=== PATIENT | male | born 1950 | race Caucasian/White ===

== ENCOUNTER → 2018-01-15 | Outpatient (CLI) | payer MEDICARE | LOC: LAB 08:54 | DX: E11.49 Type 2 diabetes mellitus with other diabetic neurological complication (principal) | CPT/HCPCS: 36415; 82040; 82247; 82310; 82374; 82435; 82565; 82947; 83036; 84075; 84132; 84155; 84295; 84450; 84460; 84520 ==

== ENCOUNTER → 2018-06-16 | Outpatient (CLI) | payer MEDICARE | LOC: LAB 11:23 | PROVIDERS: ATTEND Family Medicine | DX: E11.69 Type 2 diabetes mellitus with other specified complication (principal); E78.5 Hyperlipidemia, unspecified; E11.42 Type 2 diabetes mellitus with diabetic polyneuropathy | CPT/HCPCS: 36415; 82465; 83036; 83718; 84478 ==

== ENCOUNTER 2018-07-04 08:39 | Emergency (ER) | payer MEDICARE ==
[2018-07-04] MEDS ORDERED: fentaNYL CITR 100 MCG/2 ML AMP IVP ONE (08:50)
[2018-07-04] MEDS ORDERED: fentaNYL CITR 100 MCG/2 ML AMP ONE (09:21)
--- NOTE | 2018-07-04 09:39 | ER Report ---
History and Physical Time Seen By MD: 08:50 Hx. of Stated Complaint: PT GOT HAND CAUGHT IN SNOWBLOWER HPI/ROS CHIEF COMPLAINT: Left hand injury HISTORY OF PRESENT ILLNESS: Patient is a 68-year-old male who is left-hand dominant who had a crush injury to his left hand using a snowblower today. He states he got the hand caught between the engine and one of the beveling parts. His hand was not caught in the legs. Patient has pain to the hand specifically the 5th finger with some swelling. Patient is unsure of his last tetanus status. REVIEW OF SYSTEMS: Respiratory: No cough, no dyspnea. Cardiovascular: No chest pain, no palpitations. Gastrointestinal: No vomiting, no abdominal pain. Musculoskeletal: No back pain. Left hand injury Allergies: Coded Allergies: Sulfa (Sulfonamide Antibiotics) (Verified Allergy, Intermediate, 07/04/18) Home Meds Active Scripts Hydrocodone Bit/Acetaminophen (HYDROCODON-ACETAMINOPHEN 5-325) 1 Each Tablet, 1 EACH PO Q4-6H PRN for PAIN, #12 TAB 0 Refills TAKE ONE TABLET BY MOUTH EVERY 4-6 HOURS NEEDED FOR PAIN Prov:DEANGELO LEE MD 07/04/18 Reported Medications Meloxicam (MELOXICAM) 15 Mg Tablet, 15 MG PO QDAY 07/04/18 Metoprolol Succinate (METOPROLOL SUCCINATE) 50 Mg Tab.er.24h, 2 TAB PO QDAY, TAB 07/04/18 Allopurinol (ZYLOPRIM) 300 Mg Tablet, 300 MG PO BID, TAB 07/04/18 Lisinopril (LISINOPRIL) 5 Mg Tablet, 5 MG PO QDAY, TAB 07/04/18 Past Medical/Surgical History Noncontributory towards his chief complaint Hx Substance Use Disorder: No Hx Alcohol Use: Yes (OCCASSIONAL ) Constitutional Vital Sign - Last 24 Hours 07/04/18 07/04/18 07/04/18 07/04/18 08:44 08:47 09:15 09:30 Temp 97.1 Pulse 55 Resp 18 B/P (MAP) 127/76 127/76 (93) 132/83 (99) Pulse Ox 95 96 O2 Delivery Room Air 07/04/18 07/04/18 07/04/18 09:45 10:00 10:15 Pulse 60 58 B/P (MAP) 116/69 (85) Pulse Ox 96 96 Physical Exam General appearance: Alert no distress. Respiratory: Chest is non tender, lungs are clear to auscultation. Cardiac: Regular rate and rhythm Left hand: No gross deformity however there is bruising and pain to the dorsum of the hand along with abrasion. Patient is wearing a titanium ring on his left finger. There is swelling but the digit does not appear vascularly compromised. Capillary refill is less than 2 seconds. Examination of the Left hand reveals no acute deformity. The patient is able to give a thumbs up sign, is able to make an okay sign, and is able to AB duct the fingers. Sensation is intact over the dorsal 1st web space, the volar aspect of the 2nd finger, and the volar aspect of the 5th finger. Capillary refill is brisk. His tenderness to the 5th and 4th fingers. Medical Decision Making EKG/Imaging Imaging FACILITY: [facility] PATIENT NAME: David Rose : 1950 MR: [id number] V: [id number] EXAM DATE: ORDERING PHYSICIAN: DEANGELO LEE TECHNOLOGIST: Location: [facility] Patient: David Rose : 1950 Visit/Account:[id number] Date of Sevice: 07/04/2018 HAND COMPLETE LEFT HISTORY: Trauma. Hand caught in a car shaft. Unable to get ring off. ADDITIONAL HISTORY: None. COMPARISON: None. FINDINGS: 3 views were obtained of the left hand. There is soft tissue swelling most significant over the dorsal surface of the metacarpals. There is also soft tissue swelling of the fourth digit. Alignment is anatomic. There is no fracture identified. Bony mineralization is normal. Moderate to severe degenerative changes are present in the IP joint of the thumb, DIP joints and fourth and fifth PIP joints. IMPRESSION: 1. Soft tissue swelling without evidence of fracture. If the patient has ongoing symptoms, follow-up study may be considered in 7-10 days. 2. Osteoarthritic changes most significant in the IP joints as described above. Report Dictated By: Lo Austin MD at 07/04/2018 9:51 AM Report E-Signed By: Lo Austin MD at 07/04/2018 9:53 AM WSN:[id number] ED Course/Re-evaluation ED Course 07/04/2018 9:39:29 am multiple attempts to get the ring off using umbilical tape along with lubrication were ineffective. We attempted using a ring cutter however this isn't effective given the fact it is titanium. The distal finger does not look vascularly compromised. Plan this time will be to ice the finger and observed. 07/04/2018 10:14:13 am patient with titanium ring to the 4th finger. Had discussion with patient and spouse that we were unable to remove the ring. Currently the finger is not vascularly compromised. However my concern would be with increased swelling it could become that way. We attempted to call [facility], the prior department they have both cutters but they are too large to be of use. Explained to family that if the swelling worsens they [place] [facility] [place] [facility]. Patient and spouse had no questions or concerns at time of disposition. Decision to Disposition Date: Jul 04, 2018 Decision to Disposition Time: 10:16 Depart Departure Latest Vital Signs Vital Signs Date Time Temp Pulse Resp B/P (MAP) Pulse Ox O2 Delivery O2 Flow Rate FiO2 07/04/18 10:15 58 96 07/04/18 10:00 116/69 (85) 07/04/18 08:44 97.1 18 Room Air Impression: Primary Impression: Hand abrasion, non-infected Condition: Improved Disposition: HOME OR SELF-CARE New Scripts Hydrocodone Bit/Acetaminophen (HYDROCODON-ACETAMINOPHEN 5-325) 1 Each Tablet 1 EACH PO Q4-6H PRN for PAIN, #12 TAB 0 Refills TAKE ONE TABLET BY MOUTH EVERY 4-6 HOURS NEEDED FOR PAIN Prov: DEANGELO LEE MD 07/04/18 Departure Forms: ER Transition Record, Medications Reconciliation, Patient Portal Information Patient Instructions: Abrasion (GEN), Crush Injury (ED) Additional Instructions: Watch for worsening swelling to the hand or left finger. As we discussed the titanium ring is quite difficult to remove by usual cutting methods. And we were unable to get the ring off secondary to the swelling of the knuckle. If the swelling worsens I would recommend going [place] [facility] [place] [facility]. Keep your hand elevated above heart level at all times. Use intermittent ice packs over the hand and finger for the next 48 hours. Topical antibiotic to the abrasions twice per day for the next 5-7 days DEANGELO LEE MD Jul 04, 2018 09:39
--- NOTE | 2018-07-04 09:58 | RADIOLOGY IMAGING REPORT ---
FACILITY: [facility] [place] PATIENT NAME: David Rose : 1950 MR: [id number] V: [id number] EXAM DATE: ORDERING PHYSICIAN: DEANGELO LEE TECHNOLOGIST: Location: [facility] [place] Patient: David Rose : 1950 Visit/Account:[id number] Date of Sevice: 07/04/2018 HAND COMPLETE LEFT HISTORY: Trauma. Hand caught in a car shaft. Unable to get ring off. ADDITIONAL HISTORY: None. COMPARISON: None. FINDINGS: 3 views were obtained of the left hand. There is soft tissue swelling most significant over the dorsa l surface of the metacarpals. There is also soft tissue swelling of the fourth digit. Alignment is an atomic. There is no fracture identified. Bony mineralization is normal. Moderate to severe degenerative changes are present in the IP joint of the thumb, DIP joints and four th and fifth PIP joints. IMPRESSION: 1. Soft tissue swelling without evidence of fracture. If the patient has ongoing symptoms, follow-up study may be considered in 7-10 days. 2. Osteoarthritic changes most significant in the IP joints as described above. Report Dictated By: Lo Austin MD at 07/04/2018 9:51 AM Report E-Signed By: Lo Austin MD at 07/04/2018 9:53 AM WSN:[id number]
[2018-07-04 10:00] VITALS: BP 116/69
[2018-07-04] MEDS ORDERED: LISI5TAB25 PO (10:01)
[2018-07-04] MEDS ORDERED: METO50TA19 PO (10:01)
[2018-07-04] MEDS ORDERED: ALLO-119 PO (10:01)
[2018-07-04] MEDS ORDERED: MELO-207 PO (10:01)
[2018-07-04] MEDS ORDERED: LOR5/325 PO (10:10)
[2018-07-04] MEDS ORDERED: DIPHTH/TETANUS/ACEL. PERTUSSIS IM ONLY ONE (10:30)
== END 2018-07-04 10:38 | disposition home or self-care (01) ==
LOC: ER 09:06
DX: S60.512A Abrasion of left hand, initial encounter (principal); M79.89 Other specified soft tissue disorders; W31.89XA Contact with other specified machinery, initial encounter
CPT/HCPCS: 73130; 90471; 90715; 96374; 99284; J3010

== ENCOUNTER 2018-07-10 14:55 | Emergency (ER) | payer MEDICARE ==
[~2018-07-10 14:55] MED LIST: ALLO-119 PO; LISI5TAB25 PO; LOR5/325 PO; MELO-207 PO; METO50TA19 PO
--- NOTE | 2018-07-10 15:07 | ER Report ---
History and Physical Time Seen By MD: 15:08 Hx. of Stated Complaint: PATIENT HAD A HAND INJURY LAST WEEK. TODAY HE RETURNS WITH REDNESS, SWELLING AND PAIN HPI/ROS CHIEF COMPLAINT: Left hand swelling HISTORY OF PRESENT ILLNESS: This is a 68-year-old male who presents to the emergency department for left hand swelling. Patient states one week ago he was cleaning out some snow a snowblower, his glove got caught in the auger and pull his hand through, he does have multiple abrasions to the dorsum of the left hand as well as the left ring finger. He did come in for an evaluation, an x-ray of the left hand was negative for any acute fractures. Patient was discharged home. Patient states that yesterday he developed increased redness and swelling in the left ring finger and small finger, as well as a few areas of the dorsum of the left hand. No fevers or chills. No nausea or vomiting. No chest pain or shortness of breath. REVIEW OF SYSTEMS: Respiratory: No cough, no dyspnea. Cardiovascular: No chest pain, no palpitations. Gastrointestinal: No vomiting, no abdominal pain. Musculoskeletal: As above. Allergies: Coded Allergies: Sulfa (Sulfonamide Antibiotics) (Verified Allergy, Intermediate, 07/04/18) Home Meds Active Scripts Cephalexin 500 Mg Tab (KEFLEX 500 MG TAB) 500 Mg Tablet, 500 MG PO Q6H, #28 TAB 0 Refills Prov:ANDERSON MICHELLE [employer] 07/10/18 Hydrocodone Bit/Acetaminophen (HYDROCODON-ACETAMINOPHEN 5-325) 1 Each Tablet, 1 EACH PO Q4-6H PRN for PAIN, #12 TAB 0 Refills TAKE ONE TABLET BY MOUTH EVERY 4-6 HOURS NEEDED FOR PAIN Prov:DEANGELO LEE MD 07/04/18 Reported Medications Meloxicam (MELOXICAM) 15 Mg Tablet, 15 MG PO QDAY 07/04/18 Metoprolol Succinate (METOPROLOL SUCCINATE) 50 Mg Tab.er.24h, 2 TAB PO QDAY, TAB 07/04/18 Allopurinol (ZYLOPRIM) 300 Mg Tablet, 300 MG PO BID, TAB 07/04/18 Lisinopril (LISINOPRIL) 5 Mg Tablet, 5 MG PO QDAY, TAB 07/04/18 Past Medical/Surgical History The patient has a past medical and surgical history of hypertension, right knee replacement, borderline diabetic, arthritis. Reviewed Nurses Notes: Yes Hx Substance Use Disorder: No Hx Alcohol Use: Yes (OCCASSIONAL ) Constitutional Vital Sign - Last 24 Hours 07/10/18 15:03 Temp 97.8 Pulse 63 Resp 20 B/P (MAP) 131/86 Pulse Ox 93 O2 Delivery Room Air Physical Exam General Appearance: The patient is alert, has no immediate need for airway protection and no current signs of toxicity. Eyes: Pupils equal and round no injection. Respiratory: Chest is non tender, lungs are clear to auscultation. Cardiac: regular rate and rhythm. Gastrointestinal: Abdomen is soft and non tender, no masses, bowel sounds normal. Musculoskeletal: Neck: Neck is supple and non tender. Extremities have full range of motion and are non tender. Skin: Multiple abrasions to the dorsum of the left hand and multiple stages of healing, cellulitis to the left ring finger and small finger, mildly warm to touch, no drainage DIFFERENTIAL DIAGNOSIS: After history and physical exam differential diagnosis was considered for cellulitis, osteomyelitis, septic arthritis. Medical Decision Making EKG/Imaging Imaging EXAMINATION: Left hand series, 3 views 07/10/2018 3:20 PM HISTORY: Hand injury one week ago. Now with swelling and pain. COMPARISON: 07/04/2018 FINDINGS: There are fragments along the PIPs and the fourth and fifth digits with soft tissue swelling around both joints again shown. Spurring is also present along the DIP joints of fingers in the IP joint in the thumb. No acute bony finding otherwise evident. IMPRESSION: Soft tissue swelling along the fourth and fifth PIPs with calcific or bony fragments of uncertain chronicity, similar in appearance to 07/04/2018. No potential acute bony injury otherwise evident. Report Dictated By: Surjit Lim MD at 07/10/2018 4:08 PM Report E-Signed By: Surjit Lim MD at 07/10/2018 4:12 PM WSN:[id number] ED Course/Re-evaluation ED Course The patient was admitted to room. A history of this or pain. Differential diagnoses were considered. An x-ray of the left hand was negative for any acute osseous abnormalities, showing soft tissue swelling. I did review the results with the patient. I did start patient on Keflex. Patient was instructed to take medications until complete, return to ER for worsening symptoms or any other concerns. Patient discussed understanding and was discharged home. Patient was also in agreement with this plan of care. Decision to Disposition Date: Jul 10, 2018 Decision to Disposition Time: 16:24 Depart Departure Latest Vital Signs Vital Signs Date Time Temp Pulse Resp B/P (MAP) Pulse Ox O2 Delivery O2 Flow Rate FiO2 07/10/18 15:03 97.8 63 20 131/86 93 Room Air Impression: Primary Impression: Hand abrasion Additional Impression: Cellulitis of left hand Condition: Improved Disposition: HOME OR SELF-CARE New Scripts Cephalexin 500 Mg Tab (KEFLEX 500 MG TAB) 500 Mg Tablet 500 MG PO Q6H, #28 TAB 0 Refills Prov: ANDERSON MICHELLE 07/10/18 Patient Instructions: Cellulitis (ED) Additional Instructions: There are no concerning findings on your Xray. You do have an infection, we will treat with Keflex. Take the antibiotics as prescribed. I would not expect a significant improvement in the swelling in the next 48-72 hours, however if there is a dramatic change in the swelling and range of motion then return to the ED. Drink plenty of water. Get plenty of rest. Return to the ED for another concerns. Follow up with your PCP within one week for reevaluation. Problem Qualifiers Primary Impression: Hand abrasion Encounter type: initial encounter Laterality: left Qualified Codes: S60.512A - Abrasion of left hand, initial encounter ANDERSON MICHELLEP-BC Jul 10, 2018 15:07
[2018-07-10] MEDS ORDERED: CEPH500T7 PO (16:11)
--- NOTE | 2018-07-10 16:16 | RADIOLOGY IMAGING REPORT ---
FACILITY: [facility] PATIENT NAME: David Rose : 1950 MR: [id number] V: [id number] EXAM DATE: ORDERING PHYSICIAN: ANDERSON MICHELLE TECHNOLOGIST: Location: [facility] Patient: David Rose : 1950 Visit/Account:[id number] Date of Sevice: 07/10/2018 EXAMINATION: Left hand series, 3 views 07/10/2018 3:20 PM HISTORY: Hand injury one week ago. Now with swelling and pain. COMPARISON: 07/04/2018 FINDINGS: There are fragments along the PIPs and the fourth and fifth digits with soft tissue swelli ng around both joints again shown. Spurring is also present along the DIP joints of fingers in the IP joint in the thumb. No acute bony finding otherwise evident. IMPRESSION: Soft tissue swelling along the fourth and fifth PIPs with calcific or bony fragments of uncertain chr onicity, similar in appearance to 07/04/2018. No potential acute bony injury otherwise evident. Report Dictated By: Surjit Lim MD at 07/10/2018 4:08 PM Report E-Signed By: Surjit Lim MD at 07/10/2018 4:12 PM WSN:[id number]
[2018-07-10 16:32] VITALS: BP 126/78
== END 2018-07-10 16:33 | disposition home or self-care (01) ==
LOC: ER 15:20
DX: L03.114 Cellulitis of left upper limb (principal); S60.512A Abrasion of left hand, initial encounter
CPT/HCPCS: 99283

== ENCOUNTER → 2019-01-21 | Outpatient (CLI) | payer MEDICARE ==
[~2019-01-21] MED LIST changes: +CEPH500T7 PO
[2019-01-21 10:36] LABS: LDL CHOLESTEROL 152 mg/dl
== END ==
LOC: LAB 08:44
PROVIDERS: ATTEND Family Medicine
DX: Z00.00 Encounter for general adult medical examination without abnormal findings (principal); E11.49 Type 2 diabetes mellitus with other diabetic neurological complication; Z87.39 Personal history of other diseases of the musculoskeletal system and connective tissue
CPT/HCPCS: 36415; 82040; 82247; 82310; 82374; 82435; 82465; 82565; 82947; 83036; 83718; 84075; 84132; 84155; 84295; 84450; 84460; 84478; 84520; 84550